=== PATIENT | female | born 1990 | race Caucasian/White ===

== ENCOUNTER 2024-04-24 03:05 | Emergency (ER) | payer BC ==
[~2024-04-24] VITALS: Ht 160 cm; Wt 63.5 kg
[2024-04-24] MEDS ORDERED: BUSP5TAB3 PO (03:23)
[2024-04-24] MEDS ORDERED: ONDANSETRON ODT 4 MG TAB.RAPDIS ONE (03:34)
[2024-04-24] MEDS ORDERED: LORAZEPAM 1 MG TABLET ONE (03:35)
[2024-04-24] MEDS ORDERED: HYDROMORPHONE 1 MG/1 ML DISP.SYRIN ONE (03:36)
[2024-04-24] MEDS: LORAZEPAM 0.5 MG TABLET PO ONE (03:40)
[2024-04-24] MEDS: ONDANSETRON ODT 4 MG TAB.RAPDIS SL ONE (03:40)
[2024-04-24] MEDS: HYDROMORPHONE 1 MG/1 ML DISP.SYRIN IM ONE (03:40)
[2024-04-24] MEDS ORDERED: HYDR-3980 PO (05:58)
[2024-04-24] MEDS ORDERED: CARI350T27 PO (05:58)
[2024-04-24] MEDS ORDERED: ONDA4TAB11 PO (05:58)
[2024-04-24 06:44] VITALS: BP 135/82; TEMP 97.9; O2SAT 100
== END 2024-04-24 06:43 | disposition home or self-care (01) ==
LOC: ER 03:12
DX: M54.50 Low back pain, unspecified (principal); F41.9 Anxiety disorder, unspecified; Z79.891 Long term (current) use of opiate analgesic; Z79.899 Other long term (current) drug therapy; Z91.013 Allergy to seafood
CPT/HCPCS: 99283; 72100; 96372; J1170; A4606; A4663; Q0162